=== PATIENT | male | born 1950 | race Caucasian/White ===

== ENCOUNTER 2020-03-01 07:22 | Outpatient (CLI) | payer OTHER ==
[~2020-03-01] VITALS: Ht 175.3 cm; Wt 81.4 kg
[2020-03-01 08:03] LABS: ANION GAP 7.6 mmol/L (8-16); CALCIUM 8.3 mg/dL (8.5-10.1); CARBON DIOXIDE 28.2 mmol/L (21.0-32.0); CREATININE - SERUM 1.6 mg/dL (0.6-1.3); POTASSIUM - SERUM 4.8 mmol/L (3.5-5.1)
[2020-03-01 08:07] LABS: APTT 31.2 SECONDS (22.8-39.4); INR 0.88 (0.85-1.17); PROTIME 11.9 SECONDS (11.6-15.0)
[2020-03-01 08:35] LABS: HEMATOCRIT 46.5 % (42.0-54.0); HEMOGLOBIN 15.6 g/dL (13.5-17.5); LYMPHOCYTES 19.5 % (15-50); MCH 30.6 pg (26.0-34.0); MCHC 33.5 g/dL (31.0-37.0); MCV 91.2 fL (80.0-100.0); MEAN PLATELET VOLUME 8.6 fL (7.4-10.4); NEUTROPHILS 72.7 % (40-80); PLATELET COUNT 409 10x3/uL (130-400); RDW 18.3 % (11.5-14.5)
[2020-03-01] MEDS ORDERED: LIPITOR40 MG PO (08:51)
[2020-03-01] MEDS ORDERED: PROTONIX40 MG PO (08:52)
[2020-03-01] MEDS ORDERED: VASOTEC5 MG PO (08:53)
[2020-03-01] MEDS ORDERED: ZOLOFT100 MG PO (08:53)
[2020-03-01] MEDS ORDERED: ACETAMINOPHEN500 M1 PO (08:54)
[2020-03-01 09:04] VITALS: BP 127/88; BMI 26.5
[2020-03-01 12:00] VITALS: BP 87/49
[2020-03-01 12:07] VITALS: BP 127/88; Ht 175.3 cm; Wt 81.4 kg
[2020-03-01 14:43] LABS: HEMATOCRIT 42.3 % (42.0-54.0); HEMOGLOBIN 14.1 g/dL (13.5-17.5); LYMPHOCYTES 23.1 % (15-50); MCH 30.6 pg (26.0-34.0); MCHC 33.3 g/dL (31.0-37.0); MCV 91.8 fL (80.0-100.0); MEAN PLATELET VOLUME 8.2 fL (7.4-10.4); NEUTROPHILS 67.6 % (40-80); PLATELET COUNT 351 10x3/uL (130-400); RBC 4.61 10x6/uL (4.20-6.10); RDW 18.1 % (11.5-14.5); WBC 7.8 10x3/uL (4.8-10.8)
--- NOTE | 2020-03-01 19:30 | NUR ---
PATIENT IS RESTING COMFORTABLY IN BED. HIS HEAD ACHE IS GETTING BETTER. HIS IS IN THE ROOM. HE STATES HE IS NOT A DIABETIC, AND WE ARE CHECKING HIS BLOOD SUGARS. BP IS NO THE LOW SIDE OF NORMAL. WE WILL CONTINUE TO MONITOR HIS BLOOD PRESSURE.
[2020-03-01 20:00] VITALS: BP 99/60
[2020-03-01 20:39] LABS: HEMATOCRIT 41.4 % (42.0-54.0); HEMOGLOBIN 13.6 g/dL (13.5-17.5); MCH 30.3 pg (26.0-34.0); MCHC 32.9 g/dL (31.0-37.0); MCV 92.2 fL (80.0-100.0); MEAN PLATELET VOLUME 8.4 fL (7.4-10.4); NEUTROPHILS 66.9 % (40-80); PLATELET COUNT 340 10x3/uL (130-400); RBC 4.49 10x6/uL (4.20-6.10); RDW 18.3 % (11.5-14.5); WBC 6.6 10x3/uL (4.8-10.8)
[2020-03-02] VITALS: BP 93/57
[2020-03-02 03:34] LABS: HEMATOCRIT 39.9 % (42.0-54.0); HEMOGLOBIN 13.1 g/dL (13.5-17.5); LYMPHOCYTES 26.2 % (15-50); MCH 30.3 pg (26.0-34.0); MCHC 32.8 g/dL (31.0-37.0); MCV 92.1 fL (80.0-100.0); MEAN PLATELET VOLUME 8.5 fL (7.4-10.4); NEUTROPHILS 61.5 % (40-80); PLATELET COUNT 350 10x3/uL (130-400); RBC 4.33 10x6/uL (4.20-6.10); RDW 18.1 % (11.5-14.5); WBC 6.4 10x3/uL (4.8-10.8)
[2020-03-02 04:00] VITALS: BP 112/69
--- NOTE | 2020-03-02 04:35 | NUR ---
PATIENT IS RESTING IN BED. HE DID SLEEP SOME. HE IS VOIDING DARK URINE. I ADVISED HIM TO DRINK MORE FLUIDS. WE WILL MONITOR HIS OUT PUT AND KIDNEY FUNCTION.
[2020-03-02 08:00] VITALS: BP 185/78
--- NOTE | 2020-03-02 11:17 | NUR ---
0700 AWAKE ALERT SPOUSE REMAINS AT BEDSIDE ASSESSMENT COMPLETE
--- NOTE | 2020-03-02 11:18 | NUR ---
0928 C/O SEVERE HEADACHE NORCO PO GIVEN . SEE MAR
--- NOTE | 2020-03-02 11:19 | NUR ---
1000 RIGHT FORE ARM S/L REMOVED SITE SATISFACTORY
--- NOTE | 2020-03-02 11:20 | NUR ---
1041 TAKEN TO CAR VIA SPOUSE TO DRIVE HOME VERBAL AND WRITTEN DISCHARGE INSTRUCTIONS GIVEN BOTH PT AND SPOUSE VERBBALIZED UNDERSTANDING
== END 2020-03-02 12:38 ==
LOC: D.M2 07:22 → D.SP 07:22 → D.RAD 10:00 → D.M2 10:46 → D.SP 03-02 12:38
PROVIDERS: Specialist; ATTEND Internal Medicine
DX: N04.9 Nephrotic syndrome with unspecified morphologic changes (principal); I10 Essential (primary) hypertension; E78.2 Mixed hyperlipidemia; Z68.26 Body mass index [BMI] 26.0-26.9, adult

== ENCOUNTER → 2020-04-10 08:36 | Outpatient (CLI) | payer OTHER ==
[2020-03-01 12:07] VITALS: BMI 26.5
[~2020-04-10 08:36] MED LIST: ACETAMINOPHEN500 M1 PO; LIPITOR40 MG PO; PROTONIX40 MG PO; VASOTEC5 MG PO; ZOLOFT100 MG PO
--- NOTE | 2020-04-11 08:18 | EC ---
PATIENT:DORA BECKWITH DATE OF SERVICE: 04/10/20 SEX: M MEDICAL RECORD: [id number] DATE OF : 50 [facility] AGE OF PAT[facility]: 69 ADMISSION DATE: 04/10/20 REFERRING PHYSICIAN: INTERPRETING PHYSICIAN: DEVIKA SMITH MD ECHOCARDIOGRAM REPORT ECHO CHARGES 4 ECHO COMPLETE Date: 04/10/20 CLINICAL DIAGNOSIS: AMYLOID ECHOCARDIOGRAPHIC MEASUREMENTS (adult normal given) AC root (d.<3.7cm) 3.7 cm LV Septum d (<1.2 cm> 1.5 cm Valve Excursion 2.0 cm LV Septum (systole) 1.6 cm Left Atria (s.<4.0cm> 3.5 cm LVPW d(<1.2cm) 0.9 cm RV (d.<2.3cm) 2.4 cm LVPW (sytole) 1.5 cm LV diastole(<5.6CM) 4.9 cm MV E-F(>70mm/sec) cm LV systole 3.9 cm LVOT Diameter 1.6 cm MV exc.(>10mm) cm Est.ejection fraction (50-75%) % DOPPLER: LVIT cm/sec A 51 cm/sec E 41 cm/sec LA cm/sec RVSP 28.3 mmHg LVOT 172 cm/sec AOP1/2T m/s Asc. Ao 145 cm/sec RVOT 73 cm/sec RA cm/sec PA 66 cm/sec AV Gradient Peak 8.4 mmHg AV Mean 4.6 mmHg AV Area 2.7 cm MV Gradient Peak 1.8 mmHg MV Mean 0.8 mmHg MV Area cm COMMENTS: Fell Cutter: [facility] Lead Burner: 3 Dr. Reich TAPE# PACS Pericardial Effusion N DATE OF SERVICE: 04/10/2020 Adequate 2D, color flow imaging, spectral Doppler, and M-Mode. LVH is present. LV internal dimension is normal. Wall motion is normal. EF is greater than or equal to 55%. Aortic valve is tricuspid. No evidence of stenosis by Doppler interrogation. Left atrium is normal. Mitral valve shows no prolapse. Trace MR. Right-sided chambers are grossly normal. Trace TR. TRANSINT:[id number] Voice Confirmation ID: [id number] DOCUMENT ID: [id number] ECHOCARDIOGRAM REPORT [id number] TANG,DORA DEVIKA REED MD at 0818 CC: [id number] DICTATION DATE: 04/10/20 1243 PODIATRIC PHYSICIAN: 04/10/202025 DEP CLI 04/10/20 [address] [place] [address]
== END | disposition home or self-care (01) ==
LOC: D.ECHO 08:36
PROVIDERS: ATTEND Internal Medicine Hematology & Oncology
DX: E85.9 Amyloidosis, unspecified (principal)

== ENCOUNTER 2020-04-16 07:44 | Day surgery (SDC) | payer OTHER ==
[~2020-04-16] VITALS: Ht 175.3 cm; Wt 76.4 kg
[2020-04-16 08:33] LABS: BASOPHILS 0.8 % (0-2); EOSINOPHILS 6.1 % (0-7); HEMATOCRIT 44.8 % (42.0-54.0); HEMOGLOBIN 15.7 g/dL (13.5-17.5); MCH 30.2 pg (26.0-34.0); MCV 86.2 fL (80.0-100.0); MEAN PLATELET VOLUME 9.3 fL (7.4-10.4); MONOCYTES 5.2 % (2-11); NEUTROPHILS 67.9 % (40-80); PLATELET COUNT 313 10x3/uL (130-400); RDW 18.7 % (11.5-14.5); WBC 7.2 10x3/uL (4.8-10.8)
[2020-04-16 08:34] LABS: ANION GAP 12.3 mmol/L (8-16); CALCIUM 8.2 mg/dL (8.5-10.1); CARBON DIOXIDE 24.3 mmol/L (21.0-32.0); CREATININE - SERUM 2.9 mg/dL (0.6-1.3); POTASSIUM - SERUM 3.6 mmol/L (3.5-5.1)
[2020-04-16] MEDS ORDERED: ATIVAN0.5 MG PO (08:59)
[2020-04-16 09:17] VITALS: Ht 175.3 cm; Wt 76.4 kg
[2020-04-16 09:18] LABS: APTT 32.6 SECONDS (22.8-39.4); INR 0.98 (0.85-1.17)
== END 2020-04-16 13:25 | disposition home or self-care (01) ==
LOC: D.SP 07:44 → D.CT 10:00 → D.SP 10:00
PROVIDERS: General Practice; ATTEND Internal Medicine Hematology & Oncology
DX: E85.9 Amyloidosis, unspecified (principal); Z01.89 Encounter for other specified special examinations; R11.0 Nausea

== ENCOUNTER 2020-04-25 12:11 | Inpatient (IN) | payer OTHER ==
[~2020-04-25] VITALS: Ht 175.3 cm; Wt 72.1 kg
--- NOTE | ~2020-04-25 | OP ---
PATIENT NAME: DORA BECKWITH MEDICAL RECORD: [id number] :50 LOCATION:D.M2 D.2104 ADMISSION DATE:04/25/20 SURGEON: MAYELA ELIZABETH MD DATE OF OPERATION: 04/27/2020 PREOPERATIVE DIAGNOSES: 1. Amyloidosis. 2. Nephrotic syndrome. 3. Acute kidney injury. 4. Hypertension. 5. Gastroesophageal reflux disease. 6. Polymyalgia. POSTOPERATIVE DIAGNOSES: 1. Amyloidosis. 2. Nephrotic syndrome. 3. Acute kidney injury. 4. Hypertension. 5. Gastroesophageal reflux disease. 6. Polymyalgia. PROCEDURES: 1. Left subclavian vein port placements. 2. Fluoroscopic interpretation. SURGEON: Mayela Elizabeth MD REPORT OF PROCEDURE: The patient's left chest was prepped and draped in sterile fashion. A needle was used to cannulate the left subclavian vein and a guidewire was advanced with ease. Fluoro was used to note that the wire was in good position in the venous system. A skin incision was made on the left superior lateral chest and a subcutaneous pouch was made over the pectoral fascia. The catheter was then tunneled between this pouch and the wire exit site. The port was sutured to the pectoral fascia with interrupted 3-0 Prolenes times 2. The catheter was cut with a beveled tip at 25 cm. The dilator trocar device was then placed over the wire and the wire and dilator were removed. The catheter tip was advanced through the trocar and the trocar was removed. The catheter tip was noted to be in good position at the right atrial superior vena caval junction. The catheter aspirated nonpulsatile dark blood and flushed easily with heparinized saline. This was sutured into place with interrupted subcutaneous 3-0 Vicryl and the skin was closed with running subcutaneous 5-0 Monocryl. COMPLICATIONS: None. CONDITION: Stable. ANESTHESIA: General endotracheal and local. BLOOD LOSS: Minimal. TRANSINT:[id number] Voice Confirmation ID: [id number] DOCUMENT ID: [id number] OPERATIVE REPORT [id number] DORA BECKWITH MAYELA ELIZABETH MD CC: [id number] DICTATION DATE: 04/27/20 1045 ORNAMENTAL IRONWORKER HELPER: 04/27/20 1516 DIS IN 04/28/20 [id number] [place] [address]
[~2020-04-25 12:11] MED LIST changes: +ATIVAN0.5 MG PO
[2020-04-25 14:30] LABS: BASOPHILS 0.2 % (0-2); EOSINOPHILS 0.1 % (0-7); HEMATOCRIT 43.8 % (42.0-54.0); HEMOGLOBIN 15.5 g/dL (13.5-17.5); IMMATURE GRANULOCYTES 0.2 % (0-5); LYMPHOCYTES 8.3 % (15-50); MCH 30.4 pg (26.0-34.0); MCHC 35.4 g/dL (31.0-37.0); MCV 85.9 fL (80.0-100.0); MONOCYTES 5.4 % (2-11); NEUTROPHILS 85.8 % (40-80); PLATELET COUNT 304 10x3/uL (130-400); RDW 18.9 % (11.5-14.5); WBC 10.8 10x3/uL (4.8-10.8)
[2020-04-25 14:39] LABS: ANION GAP 13.8 mmol/L (8-16); CARBON DIOXIDE 23.2 mmol/L (21.0-32.0); CREATININE - SERUM 2.8 mg/dL (0.6-1.3)
[2020-04-25 15:00] LABS: BILIRUBIN - TOTAL 0.45 mg/dL (0.2-1.3); PROTEIN - SERUM 5.1 g/dL (6.4-8.2)
[2020-04-25 15:27] LABS: TROPONIN-I 0.108 ng/mL (0.000-0.060)
[2020-04-25 17:37] LABS: APTT 37.8 SECONDS (22.8-39.4); INR 1.04 (0.85-1.17); PROTIME 13.5 SECONDS (11.6-15.0)
[2020-04-25 18:30] VITALS: BP 99/71
[2020-04-25] MEDS ORDERED: PHENERGAN25 M1 PO (19:53)
[2020-04-26] VITALS (7 sets, daily range): BP systolic 95–129; BP diastolic 41–74; Ht 175.3 cm; Wt 72.1 kg
[2020-04-26 06:37] LABS: BASOPHILS 0.5 % (0-2); EOSINOPHILS 0.8 % (0-7); HEMATOCRIT 40.1 % (42.0-54.0); IMMATURE GRANULOCYTES 0.2 % (0-5); LYMPHOCYTES 11.9 % (15-50); MCHC 34.9 g/dL (31.0-37.0); MCV 86.1 fL (80.0-100.0); MEAN PLATELET VOLUME 9.2 fL (7.4-10.4); MONOCYTES 6.1 % (2-11); NEUTROPHILS 80.5 % (40-80); PLATELET COUNT 274 10x3/uL (130-400); RBC 4.66 10x6/uL (4.20-6.10); WBC 8.4 10x3/uL (4.8-10.8)
[2020-04-26 06:37] LABS: BILIRUBIN NEGATIVE (NEGATIVE); KETONE NEGATIVE (NEGATIVE); NITRITE NEGATIVE (NEGATIVE); UROBILINOGEN NORMAL (NORMAL)
[2020-04-26 06:38] LABS: BACTERIA FEW /hpf (NONE SEEN); WHITE CELLS - URINE 0-5 /hpf (0-5)
[2020-04-26 06:39] LABS: AMORPHOUS SEDIMENT <1+ /lpf (NONE SEEN); GRANULAR CAST 0-5 /lpf (NONE SEEN)
[2020-04-26 07:07] LABS: ALBUMIN 0.8 g/dL (3.4-5.0); ANION GAP 11.9 mmol/L (8-16); BILIRUBIN - TOTAL 0.33 mg/dL (0.2-1.3); CALCIUM 7.6 mg/dL (8.5-10.1); CARBON DIOXIDE 23.3 mmol/L (21.0-32.0); CREATININE - SERUM 2.5 mg/dL (0.6-1.3); POTASSIUM - SERUM 3.2 mmol/L (3.5-5.1); PROTEIN - SERUM 4.4 g/dL (6.4-8.2)
--- NOTE | 2020-04-26 07:20 | NUR ---
RECIEVE REPORT. ALERT AND ORIENTED X4. SITTING UP IN BED. FAMILY AT BEDSIDE. FOLLOW ELECTROLYTE PROTOCOL. DENIES ANY NEEDS. CONTINUE PLAN OF CARE AND SAFETY PRECAUTIONS.
--- NOTE | 2020-04-26 10:56 | NUR ---
ALERT AND ORIENTED X4. SITTING UP IN BED. CONSENTS FOR PORT PLACEMENT SIGNED ON CHART. DENIES ANY NEEDS. CONTINUE PLAN OF CARE AND SAFETY PRECAUTIONS.
--- NOTE | 2020-04-26 13:13 | NUR ---
Pt resting in bed drinking water no complaints at this time.
[2020-04-26 14:30] LABS: CHOL - HDL RATIO 20.4 ratio (2.3-4.9); LDL-HDL RATIO 16.9 ratio (1.5-3.5)
[2020-04-26 16:02] LABS: CKMB 3.4 U/L (0.0-3.6); CREATINE KINASE 95 UL (21-232)
--- NOTE | 2020-04-26 19:00 | NUR ---
REPORT RECEIVED, WILL CONTINUE POC. PATIENT IS AAOX4, SITTING UP ON SIDE OF BED. NO S/S OF DISTRESS OBSERVED, RR EVEN AND UNLABORED ON ROOM AIR. PATIENT DENIES NEEDS AT THIS TIME. CL IN REACH, BED LOCKED AND LOWERED. WILL CTM.
--- NOTE | 2020-04-26 20:25 | NUR ---
PT COMPLAINS OF NAUSEA PRN ZOFRAN GIVEN. UA COLLECTED SENT TO LAB.
[2020-04-26 20:35] LABS: BILIRUBIN NEGATIVE (NEGATIVE); KETONE SMALL mg/dL (NEGATIVE); NITRITE NEGATIVE (NEGATIVE); UROBILINOGEN NORMAL mg/dL (< 2)
[2020-04-26 20:39] LABS: BACTERIA MODERATE /HPF (NONE SEEN); EPITHELIAL CELLS 0-5 /hpf (0-5); WHITE CELLS - URINE 0-5 /HPF (0-1)
[2020-04-26 20:40] LABS: GRANULAR CAST 0-5 /lpf (NONE SEEN)
[2020-04-26 21:07] LABS: CKMB 3.6 U/L (0.0-3.6); CREATINE KINASE 112 UL (21-232)
[2020-04-26 21:11] LABS: TROPONIN-I 0.133 ng/mL (0.000-0.060)
[2020-04-27] VITALS (7 sets, daily range): BP systolic 85–121; BP diastolic 5–63
--- NOTE | 2020-04-27 01:10 | NUR ---
I have reviewed this patient and I concur with the Shift Assessment completed by the Licensed Practical Nurse today this shift.
[2020-04-27 05:06] LABS: BASOPHILS 0.7 % (0-2); EOSINOPHILS 1.5 % (0-7); HEMATOCRIT 32.9 % (42.0-54.0); HEMOGLOBIN 11.3 g/dL (13.5-17.5); IMMATURE GRANULOCYTES 0.4 % (0-5); LYMPHOCYTES 11.5 % (15-50); MCH 29.9 pg (26.0-34.0); MCHC 34.3 g/dL (31.0-37.0); MEAN PLATELET VOLUME 9.3 fL (7.4-10.4); MONOCYTES 7.6 % (2-11); NEUTROPHILS 78.3 % (40-80); PLATELET COUNT 263 10x3/uL (130-400); RBC 3.78 10x6/uL (4.20-6.10); RDW 19.4 % (11.5-14.5); WBC 7.5 10x3/uL (4.8-10.8)
[2020-04-27 05:25] LABS: ALKALINE PHOSPHATASE 84 U/L (30-120); BILIRUBIN - TOTAL 0.44 mg/dL (0.2-1.3); CALC OSMOLALITY 288 mosm/kg (275-300); CALCIUM 7.2 mg/dL (8.5-10.1); CARBON DIOXIDE 20.7 mmol/L (21.0-32.0); CHLORIDE - SERUM 111 mmol/L (98-107); CKMB 3.6 U/L (0.0-3.6); CREATINE KINASE 94 UL (21-232); CREATININE - SERUM 2.5 mg/dL (0.6-1.3); GLUCOSE 71 mg/dL (74-106); POTASSIUM - SERUM 3.4 mmol/L (3.5-5.1); PROTEIN - SERUM 4.3 g/dL (6.4-8.2); SODIUM 142 mmol/L (136-145); UREA NITROGEN 36 mg/dL (7-18); eGFR NON AFRICAN AMERICAN 27 mL/min (90-120)
[2020-04-27 05:26] LABS: ALBUMIN 1.5 g/dL (3.4-5.0); ALT (SGPT) 19 U/L (10-68)
[2020-04-27 05:27] LABS: TROPONIN-I 0.227 ng/mL (0.000-0.060)
--- NOTE | 2020-04-27 08:11 | NUR ---
AM ROUNDING DONE WITH AT BEDSIDE. PATIENT IS NPO FOR SURGERY TODAY. EKG DONE. PATIENT UP TO SINK FOR AM CARE. ON HEART MONITOR SHOWING SR. ON ROOM AIR. RIGHT AC SEEN WITH SALINE LOCK.
--- NOTE | 2020-04-27 08:31 | NUR ---
SURGICAL BATH GIVEN AND CLEAN LINENS ON BED.
--- NOTE | 2020-04-27 09:01 | NUR ---
INSTRUCTED TO PRE OP PATIENT AND THERE ARE NO MEDS.
--- NOTE | 2020-04-27 09:53 | NUR ---
TO OR VIA BED.
[2020-04-27 10:23] LABS: CREATININE - URINE 105.6 mg/dL (30-125)
[2020-04-27 10:37] LABS: PRO/CRE RATIO URINE 31.9 mg/g; PROTEIN - URINE 3371.2 mg/dL (0.0-11.9)
--- NOTE | 2020-04-27 11:22 | NUR ---
RECEIVED BACK FROM RECOVERY. DRESSING TO LEFT PORT AREA CLEAN AND DRY, INTACT. FREQUENT VITAL SIGNS BEING DONE.
[2020-04-28 02:07] VITALS: BP 115/64
--- NOTE | 2020-04-28 03:00 | NUR ---
MADE AWARE OF O2 SAT BEING 85%, 92% WHEN FOLLOWED UP ON.
--- NOTE | 2020-04-28 05:01 | NUR ---
PTS BP REMAINS LOW, ASYMPTOMATIC. DENIES DIZZINESS. WILL CPOC.
[2020-04-28 05:45] LABS: BASOPHILS 0.8 % (0-2); EOSINOPHILS 2.1 % (0-7); HEMOGLOBIN 12.7 g/dL (13.5-17.5); IMMATURE GRANULOCYTES 0.3 % (0-5); LYMPHOCYTES 11.1 % (15-50); MCH 30.2 pg (26.0-34.0); MCHC 34.3 g/dL (31.0-37.0); MCV 88.1 fL (80.0-100.0); MEAN PLATELET VOLUME 8.8 fL (7.4-10.4); MONOCYTES 5.7 % (2-11); PLATELET COUNT 265 10x3/uL (130-400); RDW 19.7 % (11.5-14.5); WBC 7.3 10x3/uL (4.8-10.8)
[2020-04-28 05:51] VITALS: BP 118/68
[2020-04-28 06:17] LABS: ALBUMIN 1.2 g/dL (3.4-5.0); BILIRUBIN - TOTAL 0.33 mg/dL (0.2-1.3); CALCIUM 7.5 mg/dL (8.5-10.1); CARBON DIOXIDE 21.6 mmol/L (21.0-32.0); CREATININE - SERUM 2.7 mg/dL (0.6-1.3); MAGNESIUM - SERUM 2.1 mg/dL (1.8-2.4); POTASSIUM - SERUM 3.6 mmol/L (3.5-5.1); PROTEIN - SERUM 4.4 g/dL (6.4-8.2)
[2020-04-28 07:00] VITALS: BP 116/70
[2020-04-28 10:12] LABS: MICROALBUMIN - URINE >20000.0 ug/mL (Not Estab.)
[2020-04-28] MEDS ORDERED: OMNICEF300 MG PO (10:12)
[2020-04-28] MEDS ORDERED: AZITHROMYCIN500 MG PO (10:12)
--- NOTE | 2020-04-28 10:58 | NUR ---
PT LAYING SUPINE, RR EVEN AND UNLABORED. DENIES NEEDS OR PAIN AT THIS TIME. CALL LIGHT WITHIN REACH. BED IN LOWEST POSITION. WILL CONTINUDE TO MONITOR.
--- NOTE | 2020-04-28 11:05 | MORECARE ---
CASE MANAGEMENT DISCHARGE SUMMARY PATIENT: DORA BECKWITH UNIT: [id number] ADM DATE: 04/25/20 AGE: 69 : 50 SEX: M ROOM/BED: D.2104 AUTHOR: MAXIMILIANO WEST PHYSICIAN: REFERRING PHYSICIAN: RU HO MD DATE OF SERVICE: 04/28/20 Discharge Plan Patient Name: DORA BECKWITH Facility: [facility]:[place] : 1950 Planned Disposition: Home or Self Care Anticipated Discharge Date: 04/28/20 Discharge Date: Expected LOS: 3 Initial Reviewer: [email or web address] Initial Review Date: 04/25/2020 Generated: 04/28/20 12:04 pm Patient Name: DORA BECKWITH Page [id number] at 1105 All edits/amendments must be made on the electronic document DICTATION DATE: 04/28/20 1104 JEWEL BEARING BROACHER: LEO 04/28/20 1104 RPT#: [id number] DC DATE: STATUS: ADM IN [facility] [address] [place] [address] END OF REPORT
--- NOTE | 2020-04-28 11:12 | MORECARE ---
CASE MANAGEMENT DISCHARGE SUMMARY PATIENT: DORA BECKWITH UNIT: [id number] ADM DATE: 04/25/20 AGE: 69 : 50 SEX: M ROOM/BED: D.2104 AUTHOR: MAXIMILIANO WEST PHYSICIAN: REFERRING PHYSICIAN: RU HO MD DATE OF SERVICE: 04/28/20 Discharge Plan Patient Name: DORA BECKWITH Facility: [facility]:[place] : 1950 Planned Disposition: Home or Self Care Anticipated Discharge Date: 04/28/20 Discharge Date: Expected LOS: 3 Initial Reviewer: WYATT Initial Review Date: 04/25/2020 Generated: 04/28/20 12:11 pm DCPIA - Discharge Planning Initial Assessment Updated by [id number]: Scott Murphy on 04/28/20 11:05 am * Is the patient Alert and Oriented? Yes * How many steps to enter\exit or inside your home? 3/0 * PCP Dr. Jamal Peoples * Pharmacy [facility] in [place] * Preadmission Environment Home with Family * ADLs Independent * Equipment Walker * List name and contact numbers for known caregivers / representatives who currently or will assist patient after discharge: Shelia Beckwith, * Verbal permission to speak to the caregivers and representatives has been obtained from the patient. Yes * Community resources currently utilized None * Please name any agencies selected above. n/a * Additional services required to return to the preadmission environment? No * Can the patient safely return to the preadmission environment? Yes * Has this patient been hospitalized within the prior 30 days at any hospital? No Last DP export: 04/28/20 10:05 a Patient Name: DORA BECKWITH Page 00543 at 1112 All edits/amendments must be made on the electronic document DICTATION DATE: 04/28/20 1111 OFFICE SERVICES CLERK: LEO 04/28/20 1111 RPT#: [id number] DC DATE: STATUS: ADM IN [facility] [address] [place] [address] END OF REPORT
--- NOTE | 2020-04-28 11:19 | MORECARE ---
CASE MANAGEMENT DISCHARGE SUMMARY PATIENT: DORA BECKWITH UNIT: [id number] ADM DATE: 04/25/20 AGE: 69 : 50 SEX: M ROOM/BED: D.2204 AUTHOR: JENNA,DOC PHYSICIAN: REFERRING PHYSICIAN: RU HO MD DATE OF SERVICE: 04/28/20 Discharge Plan Patient Name: DORA BECKWITH Facility: [facility]:[place] : 1950 Planned Disposition: Home or Self Care Anticipated Discharge Date: 04/28/20 Discharge Date: Expected LOS: 3 Initial Reviewer: [email or web address] Initial Review Date: 04/25/2020 Generated: 04/28/20 12:19 pm Comments DCP- Discharge Planning Updated by [email or web address]: Scott Murphy on 04/28/20 10:[address] Patient Name: DORA BECKWITH Admission Status: ER Accout number: [id number] Admission Date: 04-25-2020 : 1950 Admission Diagnosis:NAUSEA WITH VOMITING, UNSPECIFIED Attending: MAYITO Current LOS: 3 Anticipated DC Date: 04-28-2020 Planned Disposition: Home or Self Care Primary Insurance: [employer] Discharge Planning Comments: CM met with patient to complete initial dc planning assessment. CM educated patient on the CM role and verbal consent given by patient to complete assessment. CM verified patient's address, phone number, and emergency contact phone numbers. Patient lives at home with spouse, Shelia Beckwith. At discharge patient plans to return home and feels this is a safe discharge. CM discussed availability of home health, rehab services, and medical equipment. Patient declines HH services at this time as well as DME, SNF, and IPR. Informed patient that HH can be set up through his PCP if he later decides that he needs the service. Transportation provider at discharge will be his , Shelia Beckwith [phone]. CM will continue to follow and will assist as needed with dc plans/needs. Belt Lacer: Scott Murphy DCPIA - Discharge Planning Initial Assessment Updated by [email or web address]: Scott Murphy on 04/28/20 11:05 am * Is the patient Alert and Oriented? Yes * How many steps to enter\exit or inside your home? 3/0 * PCP Dr. Jamal Peoples * Pharmacy [facility] in [place] * Preadmission Environment Home with Family * ADLs Independent * Equipment Walker * List name and contact numbers for known caregivers / representatives who currently or will assist patient after discharge: Shelia Beckwith, * Verbal permission to speak to the caregivers and representatives has been obtained from the patient. Yes * Community resources currently utilized None * Please name any agencies selected above. n/a * Additional services required to return to the preadmission environment? No * Can the patient safely return to the preadmission environment? Yes * Has this patient been hospitalized within the prior 30 days at any hospital? No Last DP export: 04/28/20 10:12 a Patient Name: DORA BECKWITH Page [phone] at 1119 All edits/amendments must be made on the electronic document DICTATION DATE: 04/28/201118 C 40A CREW CHIEF: LEO 04/28/20 111 RPT#: [id number] DC DATE: STATUS: ADM IN [facility] [address] [place] [address] END OF REPORT
--- NOTE | 2020-04-28 13:27 | NUR ---
D/C INSTRUCTIONS REVIEWED WITH PT AND SPOUSE. REQUESTED BEING SENT HOME WITH NAUSEA MEDICATION. CALLED AND SPOKE WITH JULY RENE. PARAG CALLED INTO [facility] IN [place] PER ORDER TO ANTONIETA KINGSLEY TECH. IV D/C WITH CATHETER TIP INTACT. TELEMETRY REMOVED AND RETURNED TO DESKTOP ANALYST. PT LEFT VIA WHEELCHAIR TO PERSONAL VEHICLE.
--- NOTE | 2020-04-30 12:30 | MORECARE ---
CASE MANAGEMENT DISCHARGE SUMMARY PATIENT: DORA BECKWITH UNIT: [id number] ADM DATE: 04/25/20 AGE: 69 : 50 SEX: M ROOM/BED: D.2104 AUTHOR: JENNA,DOC PHYSICIAN: REFERRING PHYSICIAN: RU HO MD DATE OF SERVICE: 04/30/20 Discharge Plan Patient Name: DORA BECKWITH Facility: [facility]:[place] : 1950 Planned Disposition: Home or Self Care Anticipated Discharge Date: 04/28/20 Discharge Date: 04/28/2020 Expected LOS: 3 Initial Reviewer: WYATT Initial Review Date: 04/25/2020 Generated: 04/30/20 1:30 pm Comments DCP- Discharge Planning Updated by WYATT: Scott Murphy on 04/28/20 10:[address] Patient Name: DORA BECKWITH Admission Status: ER Accout number: [id number] Admission Date: 04-25-2020 : 1950 Admission Diagnosis:NAUSEA WITH VOMITING, UNSPECIFIED Attending: MAYITO Current LOS: 3 Anticipated DC Date: 04-28-2020 Planned Disposition: Home or Self Care [facility] Discharge Planning Comments: CM met with patient to complete initial dc planning assessment. CM educated patient on the CM role and verbal consent given by patient to complete assessment. CM verified patient's address, phone number, and emergency contact phone numbers. Patient lives at home with spouse, Shelia Beckwith. At discharge patient plans to return home and feels this is a safe discharge. CM discussed availability of home health, rehab services, and medical equipment. Patient declines HH services at this time as well as DME, SNF, and IPR. Informed patient that HH can be set up through his PCP if he later decides that he needs the service. Transportation provider at discharge will be his , Shelia Beckwith [phone]. CM will continue to follow and will assist as needed with dc plans/needs. Cleaner: Scott Murphy DCPIA - Discharge Planning Initial Assessment Updated by [email or web address]: Scott Murphy on 04/28/20 11:05 am * Is the patient Alert and Oriented? Yes * How many steps to enter\exit or inside your home? 3/0 * PCP Dr. Jamal Peoples * Pharmacy [facility] in [place] * Preadmission Environment Home with Family * ADLs Independent * Equipment Walker * List name and contact numbers for known caregivers / representatives who currently or will assist patient after discharge: Shelia Beckwith, * Verbal permission to speak to the caregivers and representatives has been obtained from the patient. Yes * Community resources currently utilized None * Please name any agencies selected above. n/a * Additional services required to return to the preadmission environment? No * Can the patient safely return to the preadmission environment? Yes * Has this patient been hospitalized within the prior 30 days at any hospital? No Coverage Notice Reviewer: [id number] Humble Murphy Notice Issued Date-Time: 04/28/2020 10:55 Notice Type: IM Discharge Notice Notice Delivered To: Patient Relationship to Patient: Affiliate Marketing Specialist Name: Delivery Method: HAND - Hand Delivered Mary Days: Prior Verbal Notification: Recipient Understood Notice: Yes Recipient Signature: Yes Med Rec Note Co-signed by Attending: Coverage Notice Comment: IMM DC notice explained, understood, signed, copied and given to patient as well as placed on chart. Last DP export: 04/28/20 10:19 a Patient Name: DORA BECKWITH Page [phone] at 1230 All edits/amendments must be made on the electronic document DICTATION DATE: 04/30/20 1230 SIGN BOARD ERECTOR: LEO 04/30/20 1230 RPT#: [id number] DC DATE:04/28/20 STATUS: DIS IN [facility] [address] [place] [address] END OF REPORT
== END 2020-04-28 13:39 | disposition home or self-care (01) | DRG 193 ==
LOC: D.ER 12:11 → D.M2 16:28
PROVIDERS: Emergency Medicine; Internal Medicine Interventional Cardiology; Internal Medicine Nephrology; Surgery; ADMIT Family Medicine; ATTEND Family Medicine
PROC: B5181ZA Fluoroscopy of Superior Vena Cava using Low Osmolar Contrast, Guidance (ICD-10-PCS; 2020-04-27)
PROC: 02HV33Z Insertion of Infusion Device into Superior Vena Cava, Percutaneous Approach (ICD-10-PCS; principal; 2020-04-27 10:15)
DX: J18.9 Pneumonia, unspecified organism (principal); E43 Unspecified severe protein-calorie malnutrition; E85.9 Amyloidosis, unspecified; N17.9 Acute kidney failure, unspecified; I12.9 Hypertensive chronic kidney disease with stage 1 through stage 4 chronic kidney disease, or unspecified chronic kidney disease; N18.9 Chronic kidney disease, unspecified; E87.6 Hypokalemia; K21.9 Gastro-esophageal reflux disease without esophagitis; M35.3 Polymyalgia rheumatica; F32.9 Major depressive disorder, single episode, unspecified; Z68.27 Body mass index [BMI] 27.0-27.9, adult

== ENCOUNTER → 2020-05-10 14:23 | Outpatient (CLI) | payer OTHER ==
[2020-04-26 13:15] VITALS: BMI 27.6
[~2020-05-10 14:23] MED LIST changes: +ASPIRIN EC81 MG PO; +AZITHROMYCIN500 MG PO; +FEXOFENADINE HC60 MG PO; +OMNICEF300 MG PO; +PHENERGAN25 M1 PO
== END | disposition home or self-care (01) ==
LOC: D.US 14:23
PROVIDERS: ATTEND Internal Medicine Hematology & Oncology
DX: C90.00 Multiple myeloma not having achieved remission (principal)

== ENCOUNTER 2020-05-11 10:56 | Day surgery (SDC) | payer OTHER ==
[~2020-05-11] VITALS: Ht 175.3 cm; Wt 76.8 kg
[~2020-05-11 10:56] MED LIST changes: -ASPIRIN EC81 MG PO; -FEXOFENADINE HC60 MG PO
[2020-05-11 11:34] LABS: HEMATOCRIT 41.3 % (42.0-54.0); HEMOGLOBIN 14.1 g/dL (13.5-17.5); MCH 30.7 pg (26.0-34.0); MCHC 34.1 g/dL (31.0-37.0); RBC 4.59 10x6/uL (4.20-6.10); WBC 15.1 10x3/uL (4.8-10.8)
[2020-05-11] MEDS ORDERED: VASOTEC5 MG PO (11:51)
[2020-05-11] MEDS ORDERED: FEXOFENADINE HC60 MG PO (11:52)
[2020-05-11] MEDS ORDERED: LIPITOR40 MG PO (11:52)
[2020-05-11] MEDS ORDERED: ASPIRIN EC81 MG PO (11:53)
[2020-05-11 12:21] VITALS: BP 107/67; Ht 175.3 cm; Wt 76.8 kg
--- NOTE | 2020-05-11 19:10 | NUR ---
IV D/C'D WITH CANNULA INTACT, PRESSURE HELD AND DRSG PLACED. DISCHARGE INSTRUCTIONS GIVEN TO PT AND DAUGHTER, BOTH VERBALIZED AN UNDERSTANDING. TESTS SCHEDULED PER ORDERS AND ORDERS FAXED TO DR. CALVO'S OFFICE. PT DISCHAERGED IN STABLE CONDITION AND W/O C/O
--- NOTE | 2020-05-12 17:57 | OP ---
PATIENT NAME: DORA BECKWITH MEDICAL RECORD: [id number] :50 LOCATION:[facility] ADMISSION DATE: SURGEON: CINDY CALVO DO DATE OF OPERATION: 05/11/2020 PROCEDURE: EGD with biopsies and hemostasis. INDICATIONS FOR PROCEDURE: Heartburn, epigastric pain, nausea, abnormal weight loss. SCOPE: Olympus video gastroscope. MEDICATIONS: Propofol 140 mg IV and Ji-Synephrine 400 mcg IV per anesthesia. ESTIMATED BLOOD LOSS: Minimal. COMPLICATIONS: None. FINDINGS: Informed consent was given. The patient was made comfortable with the above medication. After reaching an adequate level of sedation by slow IV push, the patient was placed on his left side. The endoscope was advanced under direct visualization through the mouth to the second portion of the duodenum with ease. The esophagus appeared normal down to the GE junction. At the GE junction, there was evidence of LA class A reflux-induced esophagitis. The endoscope was advanced beyond the GE junction into the stomach and retroflexed to view the cardia, where there was a very small sliding hiatal hernia. The mucosa throughout the entire stomach had a congested and erythematous appearance. It was very friable. There was oozing of blood from the mucosal surface when contacted by the endoscope where the water jet. Gold probe coagulation was performed in the stomach body for hemostasis of bleeding. Cold forceps biopsies were taken from the antrum to submit for histopathology and to rule out the presence of H. pylori. The endoscope was advanced into the duodenum, which appeared normal to the second portion. A cold forceps biopsy was taken to submit for histopathology. The endoscope was withdrawn from the patient. The patient tolerated the procedure well and there were no complications. IMPRESSION: 1. LA class A reflux-induced esophagitis. 2. Gastritis. 3. Small sliding hiatal hernia. PLAN AND RECOMMENDATIONS: 1. Discharge home when recovery parameters are met. 2. Follow up biopsy specimen results. 3. GERD diet and reflux precautions. 4. Small frequent meals. 5. Continue pantoprazole and Carafate as prescribed. 6. Gastric emptying scan to rule out gastroparesis. 7. Right upper quadrant ultrasound to evaluate gallbladder. 8. Consider PIPIDA scan if ultrasound and gastric emptying scan are normal to rule out gallbladder dyskinesia. 9. Follow up in GI clinic in 4-6 weeks. TRANSINT:[id number] Voice Confirmation ID: [id number] DOCUMENT ID: [id number] OPERATIVE REPORT [id number] DORA BECKWITH NATHAN A DO at 1757 CC: [id number] DICTATION DATE: 05/11/20 1345 LABORER PIE BAKERY: 05/12/20 0128 [facility] 05/11/20 [id number]
== END 2020-05-11 15:10 | disposition home or self-care (01) ==
LOC: D.OPS 10:56
PROVIDERS: Anesthesiology; ATTEND Internal Medicine Gastroenterology
DX: R10.13 Epigastric pain (principal); R11.0 Nausea; R63.4 Abnormal weight loss; K21.0 Gastro-esophageal reflux disease with esophagitis; K29.70 Gastritis, unspecified, without bleeding; K44.9 Diaphragmatic hernia without obstruction or gangrene

== ENCOUNTER → 2020-05-14 07:49 | Outpatient (CLI) | payer OTHER ==
[2020-05-11 12:21] VITALS: BMI 25.0
[~2020-05-14 07:49] MED LIST changes: +ASPIRIN EC81 MG PO; +FEXOFENADINE HC60 MG PO
== END | disposition home or self-care (01) ==
LOC: D.US 07:49
PROVIDERS: ATTEND Internal Medicine Gastroenterology
DX: R11.0 Nausea (principal); R10.9 Unspecified abdominal pain; R63.4 Abnormal weight loss

== ENCOUNTER → 2020-05-21 10:47 | Outpatient (CLI) | payer OTHER ==
[2020-05-11 12:21] VITALS: BMI 25.0
== END | disposition home or self-care (01) ==
LOC: D.NM 10:47
PROVIDERS: ATTEND Internal Medicine Gastroenterology
DX: R10.9 Unspecified abdominal pain (principal); R11.0 Nausea; R63.4 Abnormal weight loss

== ENCOUNTER 2020-05-26 16:02 | Inpatient (IN) | payer OTHER ==
[~2020-05-26] VITALS: Ht 175.3 cm; Wt 90.0 kg
[2020-05-26] VITALS (15 sets, daily range): BP systolic 75–113; BP diastolic 46–685
[2020-05-26 16:58] LABS: HEMOGLOBIN 11.3 g/dL (13.5-17.5); LYMPHOCYTES 9.3 % (15-50); MCHC 34.2 g/dL (31.0-37.0); MCV 90.7 fL (80.0-100.0); MEAN PLATELET VOLUME 9.9 fL (7.4-10.4); NEUTROPHILS 88.3 % (40-80); RBC 3.64 10x6/uL (4.20-6.10); RDW 20.5 % (11.5-14.5); WBC 9.3 10x3/uL (4.8-10.8)
[2020-05-26 17:01] LABS: APTT 35.3 SECONDS (22.8-39.4); INR 1.08 (0.85-1.17); PLATELET COUNT 228 10x3/uL (130-400); PROTIME 13.9 SECONDS (11.6-15.0)
[2020-05-26 17:28] LABS: ALBUMIN 0.6 g/dL (3.4-5.0); ALKALINE PHOSPHATASE 92 U/L (30-120); ALT (SGPT) 19 U/L (10-68); BILIRUBIN - TOTAL 0.25 mg/dL (0.2-1.3); CALC OSMOLALITY 282 mosm/kg (275-300); CARBON DIOXIDE 20.4 mmol/L (21.0-32.0); CHLORIDE - SERUM 108 mmol/L (98-107); CKMB 3.3 U/L (0.0-3.6); CREATINE KINASE 64 UL (21-232); CREATININE - SERUM 4.5 mg/dL (0.6-1.3); GLUCOSE 77 mg/dL (74-106); POTASSIUM - SERUM 3.8 mmol/L (3.5-5.1); PROTEIN - SERUM 2.8 g/dL (6.4-8.2); SODIUM 137 mmol/L (136-145); UREA NITROGEN 40 mg/dL (7-18); eGFR NON AFRICAN AMERICAN 14 mL/min (90-120)
[2020-05-26 17:40] LABS: CALCIUM 6.5 mg/dL (8.5-10.1); TROPONIN-I 0.241 ng/mL (0.000-0.060)
--- NOTE | 2020-05-26 19:54 | NUR ---
COVID-ADMIT SWAB COLLECTED AT THIS TIME.
[2020-05-26 22:24] LABS: HEMATOCRIT 36.7 % (42.0-54.0); HEMOGLOBIN 12.2 g/dL (13.5-17.5); MCH 30.4 pg (26.0-34.0); MCHC 33.2 g/dL (31.0-37.0); MCV 91.5 fL (80.0-100.0); MEAN PLATELET VOLUME 10.2 fL (7.4-10.4); NEUTROPHILS 86.8 % (40-80); PLATELET COUNT 241 10x3/uL (130-400); RBC 4.01 10x6/uL (4.20-6.10); RDW 20.9 % (11.5-14.5)
[2020-05-26 22:29] LABS: INR 1.01 (0.85-1.17); PROTIME 13.3 SECONDS (11.6-15.0)
--- NOTE | 2020-05-26 22:33 | NUR ---
ATTEMPT TO CALL REPORT, NURSE UNAVAILABLE. [facility] WILL CALL FOR REPORT.
--- NOTE | 2020-05-26 23:05 | NUR ---
[facility] REMAINS UNAVAILABLE FOR REPORT
[2020-05-26 23:10] LABS: CALC OSMOLALITY 283 mosm/kg (275-300); CARBON DIOXIDE 22.7 mmol/L (21.0-32.0); CHLORIDE - SERUM 107 mmol/L (98-107); CKMB 3.4 U/L (0.0-3.6); CREATINE KINASE 87 UL (21-232); CREATININE - SERUM 4.2 mg/dL (0.6-1.3); GLUCOSE 101 mg/dL (74-106); MAGNESIUM - SERUM 1.8 mg/dL (1.8-2.4); PHOSPHOROUS 6.5 mg/dL (2.5-4.9); POTASSIUM - SERUM 4.2 mmol/L (3.5-5.1); PRO BNP 30130 pg/mL (0-125); SODIUM 137 mmol/L (136-145); UREA NITROGEN 41 mg/dL (7-18); eGFR NON AFRICAN AMERICAN 15 mL/min (90-120)
[2020-05-26 23:13] LABS: TROPONIN-I 0.458 ng/mL (0.000-0.060)
[2020-05-27] VITALS (41 sets, daily range): BP systolic 91–147; BP diastolic 56–86; BMI 27.0
[2020-05-27 00:22] LABS: % SATURATION 15 % (15-55); IRON 12 ug/dl (35-150); TOTAL IRON BIND CAPACITY 78 ug/dl (260-445); UNSAT IRON BIND CAPACITY 66 ug/dl (150-375)
[2020-05-27 02:50] LABS: BASOPHILS 0.1 % (0-2); EOSINOPHILS 0 % (0-7); HEMATOCRIT 36.4 % (42.0-54.0); HEMOGLOBIN 12.5 g/dL (13.5-17.5); IMMATURE GRANULOCYTES 0.1 % (0-5); LYMPHOCYTES 7.7 % (15-50); MCH 30.4 pg (26.0-34.0); MCHC 34.3 g/dL (31.0-37.0); MONOCYTES 1.4 % (2-11); NEUTROPHILS 90.7 % (40-80); PLATELET COUNT 226 10x3/uL (130-400); RBC 4.11 10x6/uL (4.20-6.10); RDW 19.3 % (11.5-14.5); WBC 9.9 10x3/uL (4.8-10.8)
[2020-05-27 02:52] LABS: MCV 88.6 fL (80.0-100.0)
[2020-05-27 02:59] LABS: APTT 34.2 SECONDS (22.8-39.4); INR 1.11 (0.85-1.17); PROTIME 14.2 SECONDS (11.6-15.0)
[2020-05-27 03:20] LABS: CKMB 3.3 U/L (0.0-3.6); CREATINE KINASE 78 UL (21-232)
[2020-05-27 03:23] LABS: TROPONIN-I 0.616 ng/mL (0.000-0.060)
[2020-05-27 09:55] LABS: ALKALINE PHOSPHATASE 103 U/L (30-120); ALT (SGPT) 21 U/L (10-68); BILIRUBIN - TOTAL 0.54 mg/dL (0.2-1.3); CALC OSMOLALITY 288 mosm/kg (275-300); CHLORIDE - SERUM 107 mmol/L (98-107); CKMB 2.5 U/L (0.0-3.6); CREATINE KINASE 66 UL (21-232); CREATININE - SERUM 4.6 mg/dL (0.6-1.3); FERRITIN 629 ng/mL (3-244); GLUCOSE 107 mg/dL (74-106); MAGNESIUM - SERUM 1.8 mg/dL (1.8-2.4); POTASSIUM - SERUM 4.1 mmol/L (3.5-5.1); SODIUM 139 mmol/L (136-145); UREA NITROGEN 43 mg/dL (7-18); eGFR NON AFRICAN AMERICAN 13 mL/min (90-120)
[2020-05-27 09:56] LABS: PROTEIN - SERUM 3.6 g/dL (6.4-8.2); TROPONIN-I 0.711 ng/mL (0.000-0.060)
--- NOTE | 2020-05-27 11:39 | NUR ---
0700 REPORT RECIEVED AND CARE ASSUMED OF PATIENT.. SEE FLOW SHEET FOR SHIFT ASSESMENT FINDINGS.. PT IS AWAKE AT THIS TIME LEVOPHED FOR BP AT 10 MCG.. BILAT PIV.. LEFT LEG WITH REDNESS AND SWELLING PT C/O PAIN IN LEG AND DIFFICULTY MOVING IT.. PULSES WITH DOPPLER..
--- NOTE | 2020-05-27 11:42 | NUR ---
[address] SCAN VIA BED.. [address] SCAN .. FREDDIE WELL 1100 LAB IN TO DRAW RANDOM VANC LEVEL PT C/O PAIN IN LEG 1125 TYLENOL GIVEN FOR C/O PAIN..
--- NOTE | 2020-05-27 12:44 | NUR ---
1240 DOPPLER US OF LEFT LEG AT BEDSIDE
--- NOTE | 2020-05-27 16:54 | NUR ---
1650 US KIDNEY AT BEDSIDE..
--- NOTE | 2020-05-27 16:55 | NUR ---
1530 15CC IN BLADDER PER BLADDER SCANNER PER ORDER
--- NOTE | 2020-05-27 19:00 | NUR ---
REPORT RECEIVED. PT SITTING UP IN BED, AAOX4. NO ACUTE DISTRESS NOTED. PIV IN LT AND RT FOREARM INFUSING, SEE IV FLOWSHEET. ASSESSMENT COMPLETED, SEE FLOWSHEET. WILL CONTINUE TO MONITOR.
[2020-05-28] VITALS (56 sets, daily range): BP systolic 84–148; BP diastolic 21–90; Ht 175.3 cm; Wt 90.0 kg
[2020-05-28 05:11] LABS: CREATININE - SERUM 4.8 mg/dL (0.6-1.3); VANCOMYCIN - RANDOM 20.3 ug/mL (10.0-20.0)
--- NOTE | 2020-05-28 07:10 | NUR ---
REPORT RECIEVED FROM OFF GOING NURSE AND PATIENT CARE ASSUMED. PATIENT LAYING IN BED ON BACK WITH EYES CLOSED AND BREATHING EVENLY. IV RT FA INFUSING LEVOPHED AT 3 MCG LT AC INFUSING NS@ 50. BP 118/69 HR 103 O2RA 93 RESP 23 T 98.9. WILL CONTINUE WITH PLAN OF CARE. SR UP X 2 BED IN LOW POSITON AND CALL LIGHT IN REACH.
--- NOTE | 2020-05-28 08:36 | NUR ---
ASST PATIENT UP TO BS COMMODE. PATIENT HAD SM BM. ASST PATIENT BACK TO BED. PATIENT DYSPENIC WITH EXERTION. O2 RA 96%. GAVE PATIENT MORE APPLE JUICE. WILL CONTINUE TO MONITOR. SR UP X 2 BED IN LOW POSITION AND CALL LIGHT IN REACH.
[2020-05-28 08:42] LABS: BASOPHILS 0.4 % (0-2); EOSINOPHILS 0.9 % (0-7); HEMATOCRIT 30.7 % (42.0-54.0); HEMOGLOBIN 10.5 g/dL (13.5-17.5); IMMATURE GRANULOCYTES 0.2 % (0-5); LYMPHOCYTES 6.9 % (15-50); MCH 30.3 pg (26.0-34.0); MCHC 34.2 g/dL (31.0-37.0); MCV 88.5 fL (80.0-100.0); MEAN PLATELET VOLUME 10.5 fL (7.4-10.4); MONOCYTES 8.1 % (2-11); NEUTROPHILS 83.5 % (40-80); PLATELET COUNT 215 10x3/uL (130-400); RBC 3.47 10x6/uL (4.20-6.10); RDW 18.9 % (11.5-14.5); WBC 10.2 10x3/uL (4.8-10.8)
[2020-05-28 08:51] LABS: ANION GAP 12.5 mmol/L (8-16); CALCIUM 7.3 mg/dL (8.5-10.1); CARBON DIOXIDE 21.8 mmol/L (21.0-32.0); CREATININE - SERUM 4.8 mg/dL (0.6-1.3); POTASSIUM - SERUM 3.3 mmol/L (3.5-5.1)
--- NOTE | 2020-05-28 10:10 | NUR ---
REPORT GIVEN TO ASHLEIGH VILLEDA.
--- NOTE | 2020-05-28 10:34 | NUR ---
PATIENT CHAYA CALLED WITH CORRECT SECURITY CODE. GAVE UPDATE AND ANSWERED QUESTIONS TO SATIFACTION.
--- NOTE | 2020-05-28 13:35 | NUR ---
RESTING WELL AT THIS TIME NO C/O NOTE OR VOICED. WILL CONTINUE WITH CURRENT POC. C/L IN REACH AT BEDSIDE.
[2020-05-28 18:56] LABS: BILIRUBIN NEGATIVE (NEGATIVE); KETONE NEGATIVE (NEGATIVE); NITRITE NEGATIVE (NEGATIVE); UROBILINOGEN NORMAL mg/dL (< 2)
[2020-05-28 18:57] LABS: BACTERIA FEW HPF (NONE SEEN); WHITE CELLS - URINE OCC HPF (0-1)
--- NOTE | 2020-05-28 19:40 | NUR ---
SHIFT ASSESSMENT PER FLOW SHEET, VS CONTINUE, IV IN RIGHT FA INTACT WITH NO REDNESS OR EDEMA INFUSING VIA PUMP LEVOPHED AT 3.8MCG IN LEFT FA AND NS INFUSING AT 50 ML/HR IN RIGHT FA, PT DENIES PAIN, PT INST TO USE CALL LIGHT WHEN NEEDING TO USE BEDSIDE COMMODE, PT VERBALIZES UNDERSTANDING, DENIES NEEDS AT THIS TIME, BED IN LOW POSITION, SIDE RAILS X 2, CALL LIGTH IN REACH
--- NOTE | 2020-05-28 20:25 | NUR ---
PT INTERIOR ASSEMBLIES INSTALLER LIGHT, PT UP TO BEDSIDE COMMODE WITH ASSISTANCE, REPORTS HE NEEDS TO HAVE A BM, WIPES PROVIDED AND INST TO USE CALL LIGHT WHEN FINISHED, CALL LIGHT IN REACH
--- NOTE | 2020-05-28 20:35 | NUR ---
PT OFF BEDSIDE COMMODE, VOIDED AND HAD LARGE PASTEY BM, PT CLEANED SELF UP, BACK TO BED, DENIES FURTHER NEEDS
--- NOTE | 2020-05-28 21:00 | NUR ---
ALEJANDRA AMANDA, AUTOMOTIVE MANAGER NURSE CONTINUES TO MONITOR LEVOPHED
--- NOTE | 2020-05-28 21:15 | NUR ---
PT AWAKE, ADM 2100 MEDS PER MD ORDERS, SEE EMAR, PT REQUESTED AND SERVED FRESH H20, DENIES FURTHER NEEDS
--- NOTE | 2020-05-28 22:18 | NUR ---
PT RESTING WITH EYES CLOSED, RESP QUIET, NO DISTRESS NOTED, LEFT UNDISTURBED AT THIS TIME
[2020-05-29] VITALS (17 sets, daily range): BP systolic 98–128; BP diastolic 63–79
--- NOTE | 2020-05-29 00:22 | NUR ---
PT AWAKE, DENIES NEEDS OR PAIN AT THIS TIME, FALL PRECAUTIONS IN PLACE
--- NOTE | 2020-05-29 01:07 | NUR ---
PT AWAKE, IV IN LEFT WRIST NO LONGER PATENT, IV D/C'ED, TIP INTACT, PRESSURE HELD, BANDAID APPLIED, ALEJANDRA AMANDA RN, CHARGE NURSE STOPPED LEVOPHED AND STARTED NS IN RIGHT FA INFUSING AT 50ML/HR, ALBUMIN HUNG PER MD ORDERS, SEE EMAR, PT DENIES NEEDS AT THIS TIME
--- NOTE | 2020-05-29 02:00 | NUR ---
PT AWAKE, DENIES NEEDS OR PAIN AT THIS TIME, FALL PRECAUTIONS IN PLACE
--- NOTE | 2020-05-29 03:09 | NUR ---
PT MANAGER MACHINE LIGHT, PT UP ON BEDSIDE COMMODE, PT REPORTS THAT ANOTHER NURSE GOT HIM UP TO BEDSIDE COMMODE, PT PROVIDED WET WARM WIPES, INST TO USE CALL LIGHT WHEN FINISHED
--- NOTE | 2020-05-29 03:13 | NUR ---
PT SENIOR POWER PLANT OPERATOR LIGHT, PT FINISHED CLEANING SELF UP, PT BACK TO BED, PT VOIDED APPROX 350 MLS OF DARK YELLOW URINE AND HAD LARGE BROWN PASTEY BM, PT DENIES FURTHER NEEDS
--- NOTE | 2020-05-29 05:16 | NUR ---
PT RESTING WITH EYES CLOSED, AROUSES TO SOFT VERBAL STIMULATION, VS CONTINUE, TEMP OBTAINED, I&O'S COLLECTED, 0500/0600 MEDS ADM PER MD ORDERS, SEE EMAR, WITH FRESH H20, PT DENIES NEEDS OR PAIN AT THIS TIME
[2020-05-29 05:24] LABS: CREATININE - SERUM 4.9 mg/dL (0.6-1.3); VANCOMYCIN - RANDOM 21.8 ug/mL (10.0-20.0)
[2020-05-29 10:58] LABS: BASOPHILS 0.4 % (0-2); EOSINOPHILS 1.7 % (0-7); HEMATOCRIT 30.2 % (42.0-54.0); HEMOGLOBIN 10.2 g/dL (13.5-17.5); IMMATURE GRANULOCYTES 0.4 % (0-5); LYMPHOCYTES 8.6 % (15-50); MCH 30.1 pg (26.0-34.0); MCHC 33.8 g/dL (31.0-37.0); MCV 89.1 fL (80.0-100.0); MEAN PLATELET VOLUME 10.4 fL (7.4-10.4); MONOCYTES 8.4 % (2-11); NEUTROPHILS 80.5 % (40-80); PLATELET COUNT 216 10x3/uL (130-400); RBC 3.39 10x6/uL (4.20-6.10); RDW 18.7 % (11.5-14.5); WBC 11.2 10x3/uL (4.8-10.8)
[2020-05-29 11:16] LABS: ALKALINE PHOSPHATASE 92 U/L (30-120); BILIRUBIN - TOTAL 0.76 mg/dL (0.2-1.3); CARBON DIOXIDE 19.5 mmol/L (21.0-32.0); CHLORIDE - SERUM 108 mmol/L (98-107); POTASSIUM - SERUM 3.5 mmol/L (3.5-5.1); PROTEIN - SERUM 3.6 g/dL (6.4-8.2); SODIUM 141 mmol/L (136-145); UREA NITROGEN 41 mg/dL (7-18)
[2020-05-29 11:17] LABS: CALC OSMOLALITY 288 mosm/kg (275-300); GLUCOSE 64 mg/dL (74-106)
[2020-05-29 11:18] LABS: ALBUMIN 1.6 g/dL (3.4-5.0); ALT (SGPT) 13 U/L (10-68)
--- NOTE | 2020-05-29 19:23 | NUR ---
PATIENT ON CL STATED THAT HE HAS SWOLLEN AND PROGRESSIVELY GOTTEN WORSE. MADE SLING FOR TESTICLES AND PAGED Jimena OSMAN SALESPERSON NEW CARS. PER SALESPERSON NEW CARS, CAN ORDER U/S OF TESTICLES NAD SLING WILL WORK. VERY COMMON FOR THOSE WITH EDEMA TO SWELL IN THIS AREA. WILL RELAY MESSAGE TO PT AND SPOUSE
--- NOTE | 2020-05-29 21:46 | NUR ---
REC'D CHGE. OF SHIFT WALKING ROUNDS.BEDSIDE ULTRA SOUND OF PROSTATE IN PROGRESS. STATES HAS NEW BEEN THIS LARGE . REMAINS ELEVATED ON FOLDED TOWEL TO HELP DECREASE SCROTOL SWELLING.JACQUI DURON IS AWARE OF INCREASE SWELLING TO SCROTUM. WILL CONTINUE TO MONITOR FOR ANY CHGES AND FOLLOW CURRENT PLAN OF CARE.
[2020-05-30 05:32] LABS: BASOPHILS 0.4 % (0-2); HEMATOCRIT 31.3 % (42.0-54.0); HEMOGLOBIN 10.9 g/dL (13.5-17.5); IMMATURE GRANULOCYTES 0.4 % (0-5); MCH 30.4 pg (26.0-34.0); MCHC 34.8 g/dL (31.0-37.0); MCV 87.2 fL (80.0-100.0); MEAN PLATELET VOLUME 10.6 fL (7.4-10.4); MONOCYTES 7.9 % (2-11); NEUTROPHILS 81.3 % (40-80); RBC 3.59 10x6/uL (4.20-6.10); RDW 18.9 % (11.5-14.5); WBC 11.3 10x3/uL (4.8-10.8)
[2020-05-30 05:37] LABS: APTT 46.1 SECONDS (22.8-39.4); INR 0.99 (0.85-1.17); PROTIME 13.1 SECONDS (11.6-15.0)
[2020-05-30 06:13] LABS: PLATELET COUNT 282 10x3/uL (130-400)
[2020-05-30 06:18] LABS: ALBUMIN 1.4 g/dL (3.4-5.0); ANION GAP 16.9 mmol/L (8-16); BILIRUBIN - TOTAL 0.52 mg/dL (0.2-1.3); CALCIUM 7.2 mg/dL (8.5-10.1); CARBON DIOXIDE 18.2 mmol/L (21.0-32.0); CREATININE - SERUM 5.1 mg/dL (0.6-1.3); POTASSIUM - SERUM 3.1 mmol/L (3.5-5.1); PROTEIN - SERUM 4.3 g/dL (6.4-8.2)
--- NOTE | 2020-05-30 08:00 | NUR ---
PATIENT K+ IS 3.1 TODAY, ADMINISTERED PRN K+ PER PROTOCOL, REDRAW TIMED FOR 12. NO OTHER NEEDS AT THIS TIME. CONTINUE WITH ROBY OF CARE
[2020-05-30 08:46] VITALS: BP 118/72
[2020-05-30 09:58] VITALS: BP 134/90
[2020-05-30 12:00] VITALS: BP 107/58
[2020-05-30 13:12] LABS: MICROALBUMIN - URINE 8256.6 ug/mL (Not Estab.)
--- NOTE | 2020-05-30 15:14 | NUR ---
PER ORDERS, BLADDER SCANED PT AFTER PT HAD URINATED, PT SCAN SHOWED 489 STILL IN BLADDER, CALLED [facility] AND RELAYED MESSAGE, RECEIVED TELEPHONE ORDER FOR ORTEGA PLACEMENT. PLACED ORTEGA WITH ASSIST OF SHANTHI SANCHEZ, HAD URINE RETURN BUT ONLY GOT OUT LESS THAN 100. BLADDER SCANNED PT AGAIN AND SHOWED BLADDER HAD 463. FLUSHED ORTEGA AND STILL NO MORE URINE DRAINING. CALLED FOOD ASSEMBLER [employer]ISS[employer] K[employer]EN WILL CONTINUE WITH ROBY OF CARE
[2020-05-30 17:28] LABS: CREATININE - URINE 23.7 mg/dL (30-125); PROTEIN - URINE 1146.1 mg/dL (0.0-11.9)
[2020-05-30 17:31] LABS: NITRITE NEGATIVE (NEGATIVE)
[2020-05-30 17:32] LABS: BILIRUBIN NEGATIVE (NEGATIVE); KETONE NEGATIVE (NEGATIVE); UROBILINOGEN NORMAL mg/dL (< 2)
--- NOTE | 2020-05-30 18:57 | MORECARE ---
CASE MANAGEMENT DISCHARGE SUMMARY PATIENT: DORA BECKWITH UNIT: [id number] ADM DATE: 05/26/20 AGE: 69 : 50 SEX: M ROOM/BED: D.2224 AUTHOR: MAXIMILIANO WEST PHYSICIAN: REFERRING PHYSICIAN: KUMAR BEST MD DATE OF SERVICE: 05/30/20 Discharge Plan Patient Name: DORA BECKWITH Facility: [facility]:[place] : 1950 Planned Disposition: Home Anticipated Discharge Date: Discharge Date: Expected LOS: Initial Reviewer: [email or web address] Initial Review Date: 05/26/2020 Generated: 05/30/20 7:56 pm Patient Name: DORA BECKWITH Page 33839 at 1857 All edits/amendments must be made on the electronic document DICTATION DATE: 05/30/201855 CHIEF DEPUTY: LEO 05/30/201855 RPT#: [id number] DC DATE: STATUS: ADM IN [facility] [address] [place] [address] END OF REPORT
--- NOTE | 2020-05-30 19:04 | MORECARE ---
CASE MANAGEMENT DISCHARGE SUMMARY PATIENT: DORA BECKWITH UNIT: [id number] ADM DATE: 05/26/20 AGE: 69 : 50 SEX: M ROOM/BED: D.2224 AUTHOR: MAXIMILIANO WEST PHYSICIAN: REFERRING PHYSICIAN: KUMAR BEST MD DATE OF SERVICE: 05/30/20 Discharge Plan Patient Name: DORA BECKWITH Facility: [facility]:[place] : 1950 Planned Disposition: Home Anticipated Discharge Date: Discharge Date: Expected LOS: Initial Reviewer: [email or web address] Initial Review Date: 05/26/2020 Generated: 05/30/20 8:03 pm DCPIA - Discharge Planning Initial Assessment Updated by [email or web address]: Sarah Espinosa on 05/30/20 6:59 pm * Is the patient Alert and Oriented? Yes * How many steps to enter\exit or inside your home? * PCP Chad Barber * Pharm[facility] [place] * Preadmission Environment Home with Family * ADLs Independent * Equipment None * List name and contact numbers for known caregivers / representatives who currently or will assist patient after discharge: Shelia Beckwith - spouse - [phone] * Verbal permission to speak to the caregivers and representatives has been obtained from the patient. Yes * Community resources currently utilized None * Additional services required to return to the preadmission environment? No * Can the patient safely return to the preadmission environment? Yes * Has this patient been hospitalized within the prior 30 days at any hospital? Yes Last DP export: 05/30/20 5:57 Patient Name: DORA BECKWITH Page 98237 at 1904 All edits/amendments must be made on the electronic document DICTATION DATE: 05/30/201902 BELT BACK OPERATOR: LEO 05/30/201902 RPT#: [id number] DC DATE: STATUS: ADM IN [facility] [address] [place] [address] END OF REPORT
--- NOTE | 2020-05-30 19:10 | MORECARE ---
CASE MANAGEMENT DISCHARGE SUMMARY PATIENT: DORA BECKWITH UNIT: [id number] ADM DATE: 05/26/20 AGE: 69 : 50 SEX: M ROOM/BED: D.2224 AUTHOR: JENNA,DOC PHYSICIAN: REFERRING PHYSICIAN: PRISCILLA BEST MD DATE OF SERVICE: 05/30/20 Discharge Plan Patient Name: DORA BECKWITH Facility: [facility]:[place] : 1950 Planned Disposition: Home Anticipated Discharge Date: Discharge Date: Expected LOS: Initial Reviewer: [email or web address] Initial Review Date: 05/26/2020 Generated: 05/30/20 8:10 pm Comments DCP- Discharge Planning Updated by [email or web address]: Sarah Espinosa on 05/30/20 6:[address] LATE ENTRY 05/29/20 Patient Name: DORA BECKWITH Admission Status: ER Accout number: [id number] Admission Date: 05-26-2020 : 1950 Admission Diagnosis:SEPSIS, UNSPECIFIED ORGANISM Attending: Priscilla Best Current LOS: 4 Anticipated DC Date: Planned Disposition: Home Primary Insurance: [employer] Discharge Planning Comments: CM met with patient to complete initial dc planning assessment. CM educated patient on the CM role and verbal consent given by patient to complete assessment. Patient lives at home with family. Patient is independent. At discharge patient plans to return home and feels this is a safe discharge. CM discussed availability of home health, rehab services, and medical equipment. Patient will have family to transport home. Patient denied known discharge needs at this time. CM will continue to follow and will assist as needed with dc plans/needs Manager Product Support: Sarah Espinosa DCPIA - Discharge Planning Initial Assessment Updated by [email or web address]: Sarah Espinosa on 05/30/20 6:59 pm * Is the patient Alert and Oriented? Yes * How many steps to enter\exit or inside your home? * PCP Chad Barber * [facility] * Preadmission Environment Home with Family * ADLs Independent * Equipment None * List name and contact numbers for known caregivers / representatives who currently or will assist patient after discharge: Shelia Beckwith - spouse - [phone] * Verbal permission to speak to the caregivers and representatives has been obtained from the patient. Yes * Community resources currently utilized None * Additional services required to return to the preadmission environment? No * Can the patient safely return to the preadmission environment? Yes * Has this patient been hospitalized within the prior 30 days at any hospital? Yes Last DP export: 05/30/20 6:04 Patient Name: DORA BECKWITH Page 18361 at 1910 All edits/amendments must be made on the electronic document DICTATION DATE: 05/30/201909 LABELLING MACHINE OPERATOR: LEO 05/30/201909 RPT#: [id number] DC DATE: STATUS: ADM IN [facility] [address] [place] [address] END OF REPORT
[2020-05-30 19:42] VITALS: BP 108/67
--- NOTE | 2020-05-30 20:20 | NUR ---
REC'D IN BED WATCHING TV AT BEDSIDE. STATES FEELS MUCH BETTER TODAY AFTER SLEEPING GOOD LAST NITE.GENERALIZED EDEMA STILL.LEFT ARM SLIGHTLY WEEPING CHUX PLACED UNDER ARM AND ELEVATED.SCROTUM REMAINS SWOLLEN ELEVATED ON TOWEL. ORTEGA PATENT AND DRAINING JOSE COLORED URINE. DENIES ANY DISCOMFORT AT PRESENT TIME WILL CONTINUE TO MONITOR FOR ANY CHGES. AND FOLLOW CURRENT PLAN OF CARE.
[2020-05-31 04:00] VITALS: BP 103/63
[2020-05-31 05:43] LABS: BASOPHILS 0.9 % (0-2); EOSINOPHILS 4.6 % (0-7); HEMATOCRIT 29.1 % (42.0-54.0); HEMOGLOBIN 9.8 g/dL (13.5-17.5); IMMATURE GRANULOCYTES 0.4 % (0-5); LYMPHOCYTES 8.7 % (15-50); MCH 29.8 pg (26.0-34.0); MCHC 33.7 g/dL (31.0-37.0); MCV 88.4 fL (80.0-100.0); NEUTROPHILS 76.4 % (40-80); PLATELET COUNT 231 10x3/uL (130-400); RBC 3.29 10x6/uL (4.20-6.10); RDW 18.8 % (11.5-14.5); WBC 9.3 10x3/uL (4.8-10.8)
[2020-05-31 06:34] LABS: ALBUMIN 1.7 g/dL (3.4-5.0); ANION GAP 14.6 mmol/L (8-16); BILIRUBIN - TOTAL 0.45 mg/dL (0.2-1.3); CALCIUM 7.1 mg/dL (8.5-10.1); CARBON DIOXIDE 18.8 mmol/L (21.0-32.0); CREATININE - SERUM 5.5 mg/dL (0.6-1.3); POTASSIUM - SERUM 3.4 mmol/L (3.5-5.1); PROTEIN - SERUM 4.3 g/dL (6.4-8.2)
[2020-05-31 08:00] VITALS: BP 107/60
--- NOTE | 2020-05-31 12:00 | NUR ---
LYING IN BED,WITHOUT NEEDS.CALL LIGHT IN REACH
--- NOTE | 2020-05-31 14:05 | NUR ---
Nutrition follow-up: Pt reports feeling better today; appetite is poor to fair Pt receiving a renal diet. PO Intake is fair at this time Labs reviewed Wt: 198# RDN following.
[2020-05-31 14:13] VITALS: BP 182/44
--- NOTE | 2020-05-31 15:47 | MORECARE ---
CASE MANAGEMENT DISCHARGE SUMMARY PATIENT: DORA BECKWITH UNIT: [id number] ADM DATE: 05/26/20 AGE: 69 : 50 SEX: M ROOM/BED: D.2224 AUTHOR: JENNA,DOC PHYSICIAN: REFERRING PHYSICIAN: PRISCILLA BEST MD DATE OF SERVICE: 05/31/20 Discharge Plan Patient Name: DORA BECKWITH Facility: [facility]:[place] : 1950 Planned Disposition: Home Anticipated Discharge Date: Discharge Date: Expected LOS: Initial Reviewer: [email or web address] Initial Review Date: 05/26/2020 Generated: 05/31/20 4:46 pm Comments DCP- Discharge Planning Updated by [id number]: Sarah Espinosa on 05/30/20 6:[address] LATE ENTRY 05/29/20 Patient Name: DORA BECKWITH Admission Status: ER Accout number: [id number] Admission Date: 05-26-2020 : 1950 Admission Diagnosis:SEPSIS, UNSPECIFIED ORGANISM Attending: Priscilla Best Current LOS: 4 Anticipated DC Date: Planned Disposition: Home Primary Insurance: [employer] Discharge Planning Comments: CM met with patient to complete initial dc planning assessment. CM educated patient on the CM role and verbal consent given by patient to complete assessment. Patient lives at home with family. Patient is independent. At discharge patient plans to return home and feels this is a safe discharge. CM discussed availability of home health, rehab services, and medical equipment. Patient will have family to transport home. Patient denied known discharge needs at this time. CM will continue to follow and will assist as needed with dc plans/needs Refrigeration Specialist: Sarah Espinosa DCPIA - Discharge Planning Initial Assessment Updated by [id number]: Sarah Espinosa on 05/30/20 6:59 pm * Is the patient Alert and Oriented? Yes * How many steps to enter\exit or inside your home? * PCP Chad Barber * [facility] * Preadmission Environment Home with Family * ADLs Independent * Equipment None * List name and contact numbers for known caregivers / representatives who currently or will assist patient after discharge: Shelia Beckwith - spouse - [phone] * Verbal permission to speak to the caregivers and representatives has been obtained from the patient. Yes * Community resources currently utilized None * Additional services required to return to the preadmission environment? No * Can the patient safely return to the preadmission environment? Yes * Has this patient been hospitalized within the prior 30 days at any hospital? Yes Last DP export: 05/30/20 6:10 Patient Name: DORA BECKWITH Page 23368 at 1547 All edits/amendments must be made on the electronic document DICTATION DATE: 05/31/201546 STORE DETECTIVE: LEO 05/31/201546 RPT#: [id number] [place] DATE: STATUS: ADM IN [facility] [address] [place] [address] END OF REPORT
[2020-05-31 16:44] VITALS: BP 92/48
[2020-05-31 20:00] VITALS: BP 108/60
--- NOTE | 2020-05-31 20:00 | NUR ---
PATIENT RESTING IN BED WITH AT BEDSIDE. NO S/S OF ACUTE DISTRESS. NO C/O AT THIS TIME. PATIENT HAS A RIGHT FOREARM, SALINE LOC. PATIENT USES URINAL AND UP WITH ASSIST TO THE BATHROOM. CALL LIGHT WITHIN REACH. WILL CONTIUE TO MONITOR.
[2020-06-01 04:00] VITALS: BP 113/68
--- NOTE | 2020-06-01 04:29 | NUR ---
I have reviewed this patient and I concur with the Shift Assessment completed by the Licensed Practical Nurse today this shift.
[2020-06-01 06:26] LABS: BASOPHILS 1.5 % (0-2); EOSINOPHILS 7.5 % (0-7); HEMATOCRIT 30.5 % (42.0-54.0); HEMOGLOBIN 10.3 g/dL (13.5-17.5); IMMATURE GRANULOCYTES 0.7 % (0-5); LYMPHOCYTES 8.4 % (15-50); MCH 29.9 pg (26.0-34.0); MCHC 33.8 g/dL (31.0-37.0); MCV 88.4 fL (80.0-100.0); MEAN PLATELET VOLUME 9.5 fL (7.4-10.4); MONOCYTES 9.9 % (2-11); PLATELET COUNT 230 10x3/uL (130-400); RBC 3.45 10x6/uL (4.20-6.10); RDW 18.8 % (11.5-14.5); WBC 9.4 10x3/uL (4.8-10.8)
[2020-06-01 06:58] LABS: ALBUMIN 1.4 g/dL (3.4-5.0); ANION GAP 17.8 mmol/L (8-16); BILIRUBIN - TOTAL 0.31 mg/dL (0.2-1.3); CARBON DIOXIDE 17.8 mmol/L (21.0-32.0); CREATININE - SERUM 6.3 mg/dL (0.6-1.3); POTASSIUM - SERUM 3.6 mmol/L (3.5-5.1); PROTEIN - SERUM 4.2 g/dL (6.4-8.2)
[2020-06-01] MEDS ORDERED: MIDODRINE HCL5 MG PO (07:59)
[2020-06-01] MEDS ORDERED: SODIUM BICARBO650 MG PO (07:59)
[2020-06-01] MEDS ORDERED: CIPRO250 MG PO (08:00)
[2020-06-01] MEDS ORDERED: FLOMAX0.4 MG PO (08:00)
[2020-06-01] MEDS ORDERED: BUMEX2 MG PO (08:32)
[2020-06-01 10:41] VITALS: BP 141/64
--- NOTE | 2020-06-01 14:06 | MORECARE ---
CASE MANAGEMENT DISCHARGE SUMMARY PATIENT: DORA BECKWITH UNIT: [id number] ADM DATE: 05/26/20 AGE: 69 : 50 SEX: M ROOM/BED: D.2224 AUTHOR: JENNA,DOC PHYSICIAN: REFERRING PHYSICIAN: PRISCILLA BEST MD DATE OF SERVICE: 06/01/20 Discharge Plan Patient Name: DORA BECKWITH Facility: [facility]:[place] : 1950 Planned Disposition: Home Anticipated Discharge Date: Discharge Date: Expected LOS: Initial Reviewer: [id number] Initial Review Date: 05/26/2020 Generated: 06/01/20 3:05 pm Comments DCP- Discharge Planning Updated by [id number]: Sarah Espinosa on 05/30/20 6:[address] LATE ENTRY 05/29/20 Patient Name: DORA BECKWITH Admission Status: ER Accout number: [id number] Admission Date: 05-26-2020 : 1950 Admission Diagnosis:SEPSIS, UNSPECIFIED ORGANISM Attending: Priscilla Best Current LOS: 4 Anticipated DC Date: Planned Disposition: Home Primary Insurance: [employer] Discharge Planning Comments: CM met with patient to complete initial dc planning assessment. CM educated patient on the CM role and verbal consent given by patient to complete assessment. Patient lives at home with family. Patient is independent. At discharge patient plans to return home and feels this is a safe discharge. CM discussed availability of home health, rehab services, and medical equipment. Patient will have family to transport home. Patient denied known discharge needs at this time. CM will continue to follow and will assist as needed with dc plans/needs Records Coordinator: Sarah Espinosa DCPIA - Discharge Planning Initial Assessment Updated by [id number]: Sarah Espinosa on 05/30/20 6:59 pm * Is the patient Alert and Oriented? Yes * How many steps to enter\exit or inside your home? * PCP Chad Barber * [facility] * Preadmission Environment Home with Family * ADLs Independent * Equipment None * List name and contact numbers for known caregivers / representatives who currently or will assist patient after discharge: Shelia Beckwith [employer] - [phone] * Verbal permission to speak to the caregivers and representatives has been obtained from the patient. Yes * Community resources currently utilized None * Additional services required to return to the preadmission environment? No * Can the patient safely return to the preadmission environment? Yes * Has this patient been hospitalized within the prior 30 days at any hospital? Yes External Providers External Provider: Rena [facility] Next Contact Date: Service Request Date: Service Type: Resolution: Reviewer: Comments: Coverage Notice Reviewer: [id number] Azul Notice Issued Date-Time: 06/01/2020 14:04 Notice Type: IM Discharge Notice Notice Delivered To: Relationship to Patient: Medical Library Assistant Name: Delivery Method: - Mary Days: Prior Verbal Notification: Recipient Understood Notice: Recipient Signature: Med Rec Note Co-signed by Attending: Coverage Notice Comment: Reviewer: [id number] Azul Notice Issued Date-Time: 06/01/2020 14:04 Notice Type: Patient Choice Letter Notice Delivered To: Relationship to Patient: Medical Library Assistant Name: Delivery Method: - Mary Days: Prior Verbal Notification: Recipient Understood Notice: Yes Recipient Signature: Yes Med Rec Note Co-signed by Attending: Coverage Notice Comment: MUNA BAUTISTA Last DP export: 05/31/20 2:47 Patient Name: DORA BECKWITH Page 11944 at 1406 All edits/amendments must be made on the electronic document DICTATION DATE: 06/01/20 1406 ENTRY DRIVER OPERATOR: LEO 06/01/20 1406 RPT#: [id number] DC DATE: STATUS: ADM IN [facility] [address] [place] [address] END OF REPORT
--- NOTE | 2020-06-01 14:14 | MORECARE ---
CASE MANAGEMENT DISCHARGE SUMMARY PATIENT: DORA BECKWITH UNIT: [id number] ADM DATE: 05/26/20 AGE: 69 : 50 SEX: M ROOM/BED: D.2224 AUTHOR: JENNA,DOC PHYSICIAN: REFERRING PHYSICIAN: PRISCILLA BEST MD DATE OF SERVICE: 06/01/20 Discharge Plan Patient Name: DORA BECKWITH Facility: [facility]:[place] : 1950 Planned Disposition: Home Anticipated Discharge Date: Discharge Date: Expected LOS: Initial Reviewer: [email or web address] Initial Review Date: 05/26/2020 Generated: 06/01/20 3:13 pm Comments DCP- Discharge Planning Updated by [email or web address]: Coty Azul on 06/01/20 1:[address] Patient Name: DORA BECKWITH Admission Status: ER Accout number: [id number] Admission Date: 05-26-2020 : 1950 Admission Diagnosis:SEPSIS, UNSPECIFIED ORGANISM Attending: Priscilla Best Current LOS: 6 Anticipated DC Date: Planned Disposition: Home Primary Insurance: [employer] Discharge Planning Comments: PATIENT WILL NEED HOME HEALTH FOR ORTEGA CARE. [place] SIGNED FOR [facility] . FAXED REFERRAL. IMM SIGNED. CM TO FOLLOW AND ASSIST. Brazer Assembler: Coty Azul DCP- Discharge Planning Updated by [email or web address]: Sarah Espinosa on 05/30/20 6:[address] LATE ENTRY 05/29/20 Patient Name: DORA BECKWITH Admission Status: ER Accout number: [id number] Admission Date: 05-26-2020 : 1950 Admission Diagnosis:SEPSIS, UNSPECIFIED ORGANISM Attending: Priscilla Best Current LOS: 4 Anticipated DC Date: Planned Disposition: Home Primary Insurance: [employer] Discharge Planning Comments: CM met with patient to complete initial dc planning assessment. CM educated patient on the CM role and verbal consent given by patient to complete assessment. Patient lives at home with family. Patient is independent. At discharge patient plans to return home and feels this is a safe discharge. CM discussed availability of home health, rehab services, and medical equipment. Patient will have family to transport home. Patient denied known discharge needs at this time. CM will continue to follow and will assist as needed with dc plans/needs Brazer Assembler: Sarah Espinosa DCPIA - Discharge Planning Initial Assessment Updated by [email or web address]: Sarah Espinosa on 05/30/20 6:59 pm * Is the patient Alert and Oriented? Yes * How many steps to enter\exit or inside your home? * PCP Chad Barber * [facility] * Preadmission Environment Home with Family * ADLs Independent * Equipment None * List name and contact numbers for known caregivers / representatives who currently or will assist patient after discharge: Shelia Beckwith - spouse - [phone] * Verbal permission to speak to the caregivers and representatives has been obtained from the patient. Yes * Community resources currently utilized None * Additional services required to return to the preadmission environment? No * Can the patient safely return to the preadmission environment? Yes * Has this patient been hospitalized within the prior 30 days at any hospital? Yes Coverage Notice Reviewer: [id number] Humble Azul Notice Issued Date-Time: 06/01/2020 14:04 Notice Type: IM Discharge Notice Notice Delivered To: Relationship to Patient: Youth Agent Name: Delivery Method: - Mary Days: Prior Verbal Notification: Recipient Understood Notice: Recipient Signature: Med Rec Note Co-signed by Attending: Coverage Notice Comment: Reviewer: [id number] Azul Notice Issued Date-Time: 06/01/2020 14:04 Notice Type: Patient Choice Letter Notice Delivered To: Relationship to Patient: Youth Agent Name: Delivery Method: - Mary Days: Prior Verbal Notification: Recipient Understood Notice: Yes Recipient Signature: Yes Med Rec Note Co-signed by Attending: Coverage Notice Comment: MUNA BAUTISTA Last DP export: 06/01/20 1:06 Patient Name: DORA BECKWITH Page 81175 at 1414 All edits/amendments must be made on the electronic document DICTATION DATE: 06/01/201412 SQUIRREL MAN: LEO 06/01/201412 RPT#: [id number] DC DATE: STATUS: ADM IN [facility] [address] [place] [address] END OF REPORT
--- NOTE | 2020-06-01 16:17 | NUR ---
PT DC HOME, WENT OVER DC PAPERWORK WELL FOLLOW UP APPOINTMENTS. ALL QUESTIONS ANSWERED. NO OTHER NEEDS VOICED, IV DC WITH CATHETER INTACT
--- NOTE | 2020-06-04 09:06 | MORECARE ---
CASE MANAGEMENT DISCHARGE SUMMARY PATIENT: DORA BECKWITH UNIT: [id number] ADM DATE: 05/26/20 AGE: 69 : 50 SEX: M ROOM/BED: D.2224 AUTHOR: JENNA,DOC PHYSICIAN: REFERRING PHYSICIAN: PRISCILLA BEST MD DATE OF SERVICE: 06/04/20 Discharge Plan Patient Name: DORA BECKWITH Facility: [facility]:[place] : 1950 Planned Disposition: Home Anticipated Discharge Date: Discharge Date: 06/01/2020 Expected LOS: Initial Reviewer: [email or web address] Initial Review Date: 05/26/2020 Generated: 06/04/20 10:05 am Comments DCP- Discharge Planning Updated by [email or web address]: Coty Azul on 06/01/20 1:[address] Patient Name: DORA BECKWITH Admission Status: ER Accout number: [id number] Admission Date: 05-26-2020 : 1950 Admission Diagnosis:SEPSIS, UNSPECIFIED ORGANISM Attending: Priscilla Best Current LOS: 6 Anticipated DC Date: Planned Disposition: Home Primary Insurance: [employer] Discharge Planning Comments: PATIENT WILL NEED HOME HEALTH FOR ORTEGA CARE. [place] SIGNED FOR [facility]. FAXED REFERRAL. IMM SIGNED. CM TO FOLLOW AND ASSIST. Scaffold Setter: Coty Azul DCP- Discharge Planning Updated by [email or web address]: Sarah Espinosa on 05/30/20 6:[address] LATE ENTRY 05/29/20 Patient Name: DORA BECKWITH Admission Status: ER Accout number: [id number] Admission Date: 05-26-2020 : 1950 Admission Diagnosis:SEPSIS, UNSPECIFIED ORGANISM Attending: Priscilla Best Current LOS: 4 Anticipated DC Date: Planned Disposition: Home Primary Insurance: [employer] Discharge Planning Comments: CM met with patient to complete initial dc planning assessment. CM educated patient on the CM role and verbal consent given by patient to complete assessment. Patient lives at home with family. Patient is independent. At discharge patient plans to return home and feels this is a safe discharge. CM discussed availability of home health, rehab services, and medical equipment. Patient will have family to transport home. Patient denied known discharge needs at this time. CM will continue to follow and will assist as needed with dc plans/needs Scaffold Setter: Sarah Espinosa DCPIA - Discharge Planning Initial Assessment Updated by [id number]: Sarah Espinosa on 05/30/20 6:59 pm * Is the patient Alert and Oriented? Yes * How many steps to enter\exit or inside your home? * PCP Chad Barber * [facility] * Preadmission Environment Home with Family * ADLs Independent * Equipment None * List name and contact numbers for known caregivers / representatives who currently or will assist patient after discharge: Shelia Beckwith - spouse - [phone] * Verbal permission to speak to the caregivers and representatives has been obtained from the patient. Yes * Community resources currently utilized None * Additional services required to return to the preadmission environment? No * Can the patient safely return to the preadmission environment? Yes * Has this patient been hospitalized within the prior 30 days at any hospital? Yes Coverage Notice Reviewer: [id number] Humble Azul Notice Issued Date-Time: 06/01/2020 14:04 Notice Type: IM Discharge Notice Notice Delivered To: Relationship to Patient: Lottery Manager Name: Delivery Method: - Mary Days: Prior Verbal Notification: Recipient Understood Notice: Recipient Signature: Med Rec Note Co-signed by Attending: Coverage Notice Comment: Reviewer: [id number] Azul Notice Issued Date-Time: 06/01/2020 14:04 Notice Type: Patient Choice Letter Notice Delivered To: Relationship to Patient: Lottery Manager Name: Delivery Method: - Mary Days: Prior Verbal Notification: Recipient Understood Notice: Yes Recipient Signature: Yes Med Rec Note Co-signed by Attending: Coverage Notice Comment: MUNA BAUTISTA Last DP export: 06/01/20 1:14 Patient Name: DORA BECKWITH Page 36618 at 0906 All edits/amendments must be made on the electronic document DICTATION DATE: 06/04/20904 CLAM PICKER: LEO 06/04/20904 RPT#: [id number] DC DATE:06/01/20 STATUS: DIS IN [facility] [id number] [place] [address] END OF REPORT
== END 2020-06-01 16:19 | disposition home health service (06) | DRG 871 ==
LOC: D.ER 16:02 → D.MS 17:40 → D.EDHOLD 17:40 → D.ICU 17:40 → D.MS 19:52 → D.EDHOLD 20:00 → D.ICU 22:10 → D.MS 05-29 18:04
PROVIDERS: Family Medicine; Internal Medicine; Internal Medicine Nephrology; Specialist; ADMIT Internal Medicine Hematology & Oncology; ATTEND Internal Medicine Hematology & Oncology
PROC: 0W9B3ZZ Drainage of Left Pleural Cavity, Percutaneous Approach (ICD-10-PCS; principal; 2020-05-30 15:49)
DX: A41.9 Sepsis, unspecified organism (principal); J18.9 Pneumonia, unspecified organism; R65.21 Severe sepsis with septic shock; E85.3 Secondary systemic amyloidosis; N04.9 Nephrotic syndrome with unspecified morphologic changes; J90 Pleural effusion, not elsewhere classified; N17.9 Acute kidney failure, unspecified; I24.8 Other forms of acute ischemic heart disease; L03.115 Cellulitis of right lower limb; E85.9 Amyloidosis, unspecified; I95.89 Other hypotension; Z85.46 Personal history of malignant neoplasm of prostate; K21.9 Gastro-esophageal reflux disease without esophagitis; M35.3 Polymyalgia rheumatica; I12.9 Hypertensive chronic kidney disease with stage 1 through stage 4 chronic kidney disease, or unspecified chronic kidney disease; D64.9 Anemia, unspecified; R77.8 Other specified abnormalities of plasma proteins; E88.09 Other disorders of plasma-protein metabolism, not elsewhere classified; N18.32 Chronic kidney disease, stage 3b; F32.9 Major depressive disorder, single episode, unspecified